=== PATIENT | male | born 1985 | race Caucasian/White ===

== ENCOUNTER 2016-09-26 19:56 | Emergency (ER) | payer BC ==
[~2016-09-26] VITALS: Ht 170.2 cm; Wt 63.8 kg
[~2016-09-26 19:56] MED LIST: NOHOMEMEDS
[2016-09-26 20:37] LABS: HEMATOCRIT 43.6 % (38.0-50.0); MCH 28.9 PG (29.0-34.0); MCHC 34.4 G/DL (30.0-36.0); MEAN PLAT.VOLUME 9.6 uM^3 (9.0-12.4); PLATELET COUNT 205 K/uL (156-360); RBC DIS.WIDTH-CV 12.3 % (11.8-14.6); RBC DIS.WIDTH-SD 37.5 % (39-53); RED BLOOD COUNT 5.19 M/uL (4.00-5.50); WHITE BLOOD COUNT 6.2 K/uL (4.1-10.2)
[2016-09-26 20:46] LABS: CHLORIDE 103 mEq/L (99-109); POTASSIUM 3.7 mEq/L (3.7-5.4); SODIUM 139 mEq/L (136-147)
[2016-09-26 20:48] LABS: GLUCOSE 117 mg/dL (70-99)
[2016-09-26 20:49] LABS: ANION GAP 9 MEQ/L (2-14)
[2016-09-26 20:50] LABS: TOTAL BILIRUBIN 0.6 mg/dL (0.0-1.0)
[2016-09-26 20:51] LABS: ALKALINE PHOSPHATASE 66 IU/L (3-129)
[2016-09-26 20:52] LABS: GFR ESTIMATE (CALCULATED) > 59 mL/min/
[2016-09-26 20:53] LABS: UREA NITROGEN (BUN) 13 mg/dL (9-23)
[2016-09-26 21:15] LABS: ADD MIUA? NO; BILIRUBIN NEGATIVE; BLOOD NEGATIVE; COLOR STRAW ((YELLOW)); GLUCOSE (STRIP) NEGATIVE; KETONES NEGATIVE; LEUKOCYTES NEGATIVE; NITRITE NEGATIVE; PROTEIN (STRIP) NEGATIVE; SPECIFIC GRAVITY 1.005 (1.000-1.030); UCUL ADDED? NO; UROBILINOGEN 0.2 MG/DL (0.2-1.0)
[2016-09-26] MEDS ORDERED: CARAFATE1 GM PO (22:03)
[2016-09-26] MEDS ORDERED: PEPCID20 MG PO (22:03)
[2016-09-26 22:22] VITALS: BP 127/75
== END 2016-09-26 22:23 | disposition home or self-care (01) ==
LOC: EME 19:56
DX: R10.13 Epigastric pain (principal); R11.0 Nausea; R19.7 Diarrhea, unspecified; M54.9 Dorsalgia, unspecified; R06.02 Shortness of breath
CPT/HCPCS: 80053; 81003; 85027; 99281; 99283